=== PATIENT | female | born 1935 | race Caucasian/White ===

== ENCOUNTER 2016-07-09 19:50 | Emergency (ER) | payer OTHER ==
[~2016-07-09] VITALS: Ht 160 cm; Wt 61.9 kg
[2016-07-09 20:10] VITALS: BP 114/55; PULSE 72; RESP 18; TEMP 99.1; O2SAT 92
[2016-07-09] MEDS ORDERED: ATOR20TA15 PO (20:31)
[2016-07-09] MEDS ORDERED: LANTINJ SQ (20:31)
[2016-07-09] MEDS ORDERED: CRANCAP2 PO (20:31)
[2016-07-09] MEDS ORDERED: CHLO4TAB2 PO (20:31)
[2016-07-09] MEDS ORDERED: LEVO50TA4 PO (20:31)
--- NOTE | 2016-07-09 21:43 | RADHPO ---
EXAM DATE/TIME: 07/09/2016 20:59 [facility] COMPARISON: No previous studies available for comparison. INDICATIONS : Right hip pain following fall today. MEDICAL HISTORY : Diabetes mellitus type II. SURGICAL HISTORY : None. ENCOUNTER: Initial ACUITY: 1 day PAIN SCORE: 6/10 LOCATION: Right hip FINDINGS: Examination of the right hip was performed with AP Pelvis. The primary and secondary trabecular yoselin hunter of the femoral neck is intact. The hip joint is of normal width without significant sclerosis or bony hypertrophy. The acetabulum is grossly intact. CONCLUSION: 1. No acute findings. Mild osteoarthritis of the hips. Leonard Camp MD on July 09, 2016 at 21:40 Board Certified Radiologist. This report was verified electronically.
--- NOTE | 2016-07-09 21:44 | RADHPO ---
EXAM DATE/TIME: 07/09/2016 21:11 [facility] COMPARISON: No previous studies available for comparison. INDICATIONS : Trauma, fall. Right knee pain. MEDICAL HISTORY : Diabetes mellitus type II. SURGICAL HISTORY : None. ENCOUNTER: Initial ACUITY: 1 day PAIN SCORE: 5/10 LOCATION: Right knee FINDINGS: Four view examination of the right knee demonstrates no evidence of fracture or dislocation. There is mild to moderate osteoarthritis. Mild osteopenia. CONCLUSION: 1. No acute fracture. Mild to moderate osteoarthritis. Leonard Camp MD on July 09, 2016 at 21:42 Board Certified Radiologist. This report was verified electronically.
--- NOTE | 2016-07-09 21:56 | RADHPO ---
EXAM DATE/TIME: 07/09/2016 21:18 [facility] COMPARISON: No previous studies available for comparison. INDICATIONS : Weakness today RADIATION DOSE: 62.60 CTDIvol (mGy) MEDICAL HISTORY : Dementia. Diabetes mellitus type 2. SURGICAL HISTORY : None. ENCOUNTER: Initial ACUITY: 1 day PAIN SCALE: 0/10 LOCATION: cranial TECHNIQUE: Multiple contiguous axial images were obtained of the head. Using automated exposure control and adj ustment of the mA and/or kV according to patient size, radiation dose was kept as low as reasonably a chievable to obtain optimal diagnostic quality images. FINDINGS: Lacunar infarct right basal ganglia remote. White matter ischemic changes. No acute cranial hemorrhag e, mass effect or shift. Ventricular size mildly prominent. No recent infarct identified. CONCLUSION: 1. No acute findings. Remote lacunar infarct right basal ganglia. No recent infarct identified. Chron ic white matter ischemic changes and atrophy. Leonard Camp MD on July 09, 2016 at 21:53 Board Certified Radiologist. This report was verified electronically.
--- NOTE | 2016-07-09 22:30 | PD ---
HPI Chief Complaint: Fall Time Seen by Provider: 20:20 Travel History International Travel<30 days: No Contact w/Intl Traveler<30days: No Traveled to known affect area: No History of Present Illness HPI Patient is an 81-year-old female presenting to emergency by mother for evaluation of right hip and knee pain after falling at home at approximately 12 PM this afternoon. Fall was unwitnessed, patient states she fell because her leg gave out. Patient denies any head injury, loss of consciousness. Daughter- in-law was in the home and saw patient immediately after the fall. Patient has had no changes in mentation or activity level. Patient is able to ambulate on her leg. She has no other complaints at this time. She was complaining to the [id number]-cl-cly earlier that her it hurt but now she denies it. PFSH Past Medical History Dementia: Yes Diabetes: Yes Patient Takes Glucophage: No Diminished Hearing: No Tetanus Vaccination: Unknown Influenza Vaccination: Yes Social History Alcohol Use: No Tobacco Use: No Substance Use: No Allergies-Medications (Allergen,Severity, Reaction): Coded Allergies: No Known Allergies (Unverified , 07/09/16) Reported Meds & Prescriptions Reported Meds & Active Scripts Active Reported Chlorpheniramine (Chlorpheniramine Maleate) 4 Mg Tab 4 Mg PO Q4H PRN Levothyroxine (Levothyroxine Sodium) 50 Mcg Tab 50 Mcg PO DAILY Atorvastatin (Atorvastatin Calcium) 20 Mg Tab 20 Mg PO DAILY Lantus Solostar Pen Inj (Insulin Glargine) 300 Unit/3 Ml Pen 35 Units SQ DAILY NEB Cranberry Urinary Comfort (Vitamins C & E) 1 Cap 2 Cap PO DAILY Review of Systems Except as stated in HPI: all other systems reviewed are Neg Musculoskeletal: Positive: Myalgias, Arthralgias, Pain Physical Exam Exam Limitations: Poor Historian Narrative GENERAL: Developed, well nourished, alert elderly female. Resting comfortably in no acute distress. SKIN: Warm and dry. HEAD: Atraumatic. Normocephalic. EYES: Pupils equal and round. No scleral icterus. No injection or drainage. ENT: No nasal bleeding or discharge. Mucous membranes pink and moist. NECK: Trachea midline. No JVD. CARDIOVASCULAR: Regular rate and rhythm. No murmur appreciated. RESPIRATORY: No accessory muscle use. Clear to auscultation. Breath sounds equal bilaterally. GASTROINTESTINAL: Abdomen soft, non-tender, nondistended. Hepatic and splenic margins not palpable. MUSCULOSKELETAL: No obvious deformities. No clubbing. No cyanosis. No edema. NEUROLOGICAL: Awake and alert. No obvious cranial nerve deficits. Motor grossly within normal limits. Normal speech. PSYCHIATRIC: Appropriate mood and affect; insight and judgment.. Data Data Last Documented VS Vital Signs Date Time Temp Pulse Resp B/P Pulse Ox O2 Delivery O2 Flow Rate FiO2 07/09/16 20:10 99.1 72 18 114/[address] Brain W/O Iv Contrast(Rout) (07/09/16 ) Hip, Uni(Ap&Lat) W Ap Pelvis (07/09/16 ) Knee, Complete (4vws) (07/09/16 ) [facility] Medical Decision Making Medical Screen Exam Complete: Yes Emergency Medical Condition: Yes Interpretation(s) Vital Signs Date Time Temp Pulse Resp B/P Pulse Ox O2 Delivery O2 Flow Rate FiO2 07/09/16 20:10 99.1 72 18 114/55 92 Differential Diagnosis Fracture versus sprain versus strain versus contusion versus hemorrhage versus other Narrative Course Patient is an 81-year-old female presenting to the emergency department for evaluation of right hip and knee pain after a fall early this afternoon. Patient has been ambulating without difficulty but she was complaining of pain to [id number] says she was brought in for evaluation. Patient is a poor historian, fall was unwitnessed so CT of the head was ordered in addition to imaging of the hip and knee. CT scan of brain is negative for acute abnormality, it does show remote lacunar infarct of the right basal ganglia, no recent infarct is identified. Imaging of the hip and knee are also negative. [id number] was encouraged to follow-up with primary doctor, return to emergency department for any new or worsening symptoms. She was advised that she give acetaminophen as needed and as directed for pain. Patient was encouraged to change positions carefully. Patient is stable for discharge. Diagnosis Primary Impression: Fall Qualified Code: W19.XXXA - Fall, initial encounter Additional Impressions: Hip pain Qualified Code: M25.551 - Pain of right hip joint Knee pain Qualified Code: M25.561 - Right knee pain, unspecified chronicity Referrals: Primary Care Physician Patient Instructions: General Instructions, Hip Pain (GEN), Knee Pain (ED) Additional Instructions: Follow-up with your primary doctor Return to emergency department for any new or worsening symptoms Take medications as directed Alternate heat and ice to affected area, take acetaminophen as needed and as directed on package for pain Med/Other Pt SpecificInfo: No Change to Meds Disposition: 01 DISCHARGE HOME Condition: Stable Lilliana Talbert Jul 09, 2016 22:30
[2016-07-09 22:42] VITALS: BP 117/56
== END 2016-07-09 22:43 | disposition home or self-care (01) ==
LOC: PHEFT 19:50
DX: E11.9 Type 2 diabetes mellitus without complications (principal); F03.90 Unspecified dementia, unspecified severity, without behavioral disturbance, psychotic disturbance, mood disturbance, and anxiety; M25.551 Pain in right hip; M25.561 Pain in right knee; Z79.4 Long term (current) use of insulin; W18.30XA Fall on same level, unspecified, initial encounter; Y93.9 Activity, unspecified; Y92.019 Unspecified place in single-family (private) house as the place of occurrence of the external cause; Y99.9 Unspecified external cause status
CPT/HCPCS: 70450; 73502; 73564